=== PATIENT | female | born 1995 ===

== ENCOUNTER 2018-07-30 10:58 | Inpatient (IN) | payer MEDICAID, SELFPAY ==
[2018-07-30 12:02] VITALS: BMI 31.1
[2018-07-30] MEDS ORDERED: Lactated Ringer's 1,000 ML IV ONE (12:02)
[2018-07-30] MEDS ORDERED: Oxytocin 30 UNIT 30 UNITS/500 ML BAG IV ONE (12:03)
[2018-07-30] MEDS ORDERED: Lactated Ringer's 1,000 ML IV SCH (12:15)
[2018-07-30] MEDS ORDERED: OXYTOCIN/0.9 % NS 20 UNIT/1,000 ML BAG IV SCH (12:15)
[2018-07-30 12:45] LABS: BASO % 0.2 % (0.0-2.0); EOS # 0.1 K/uL (0.0-0.7); EOS % 0.6 % (0.0-4.0); HEMOGLOBIN 13.3 g/dL (12.0-16.0); LYMPH # 2.5 K/uL (1.0-4.3); MEAN CELL VOLUME 82.6 fl (81.0-99.0); MEAN CORPUSCULAR HEMOGLOBIN 27.9 pg (27.0-31.0); MEAN CORPUSCULAR HGB CONC 33.8 g/dL (33.0-37.0); MEAN PLATELET VOLUME 10.4 fl (7.2-11.7); MONO # 0.8 K/uL (0.0-0.8); MONO % 5.7 % (0.0-10.0); NEUT # 9.9 K/uL (1.8-7.0); NEUT % 74.5 % (50.0-75.0); NRBC % 0.1 % (0.0-0.0); RBC 4.78 Mil/uL (3.80-5.20); RED CELL DISTRIBUTION WIDTH 14.9 % (11.5-14.5); WHITE BLOOD COUNT 13.3 K/uL (4.8-10.8)
[2018-07-30] MEDS ORDERED: Benzocaine/Menthol SPRAY TOP PRN ×2 (14:16→15:59)
[2018-07-30] MEDS ORDERED: Oxycodone/Acetaminophen 5/325 mg Tab PO PRN ×4 (14:16→15:59)
[2018-07-31 07:01] LABS: BASO % 0.3 % (0.0-2.0); EOS # 0.2 K/uL (0.0-0.7); EOS % 1.8 % (0.0-4.0); HEMOGLOBIN 10.9 g/dL (12.0-16.0); LYMPH # 2.9 K/uL (1.0-4.3); LYMPH % 25.6 % (20.0-40.0); MEAN CELL VOLUME 84.2 fl (81.0-99.0); MEAN CORPUSCULAR HEMOGLOBIN 27.7 pg (27.0-31.0); MEAN CORPUSCULAR HGB CONC 32.9 g/dL (33.0-37.0); MEAN PLATELET VOLUME 10.2 fl (7.2-11.7); MONO # 0.8 K/uL (0.0-0.8); NEUT # 7.4 K/uL (1.8-7.0); NEUT % 65.3 % (50.0-75.0); RBC 3.93 Mil/uL (3.80-5.20); RED CELL DISTRIBUTION WIDTH 14.8 % (11.5-14.5); WHITE BLOOD COUNT 11.3 K/uL (4.8-10.8)
--- NOTE | 2018-07-31 13:17 | OBDS ---
DELIVERY PERSONNEL Delivery Doctor: Francisco Sanchez MD Administrative Analyst: Bridget Okeefe RN MATERNAL INFORMATION Delivery Anesthesia: Local Medications in Delivery: IV NS 0.9% 500ml with pitocin 30units. Estimated Blood Loss (ml): 200 Placenta Cultured: No Maternal Complications: None Provider Comments: Normal spontaneous vaginal delivery. Patient delivered viable with Apgars of 9 and 9 at 1 and 5 minutes respectively. de livered via DON position. Loose nuchal cord x1 reduced. Placenta delivered spontaneously. Lacerati on repaired, as above. Uterus firm and appropriately hemostatic following delivery. Patient tolerat ed repair and delivery well. No complications. Estimated blood loss 200 cc. LABOR SUMMARY EDC: 08/07/2018 00:00 No. Babies in Womb: 1 Attempted: No Labor Anesthesia: None LABOR INFORMATION Reason for Induction: Not Applicable Onset of Labor: 07/29/2018 04:00 Complete Dilatation: 07/29/2018 12:40 Oxytocin: N/A Group B Beta Strep: Negative Antibiotics # of Doses: n/a Antibiotics Time of Last Dose: n/a Steroids Given: None Reason Steroids Not Administered: Not Applicable MEMBRANES Membranes Rupture Method: Artificial Rupture of Membranes: 07/30/2018 12:40 Length of Rupture (hrs): 0.33 Amniotic Fluid Color: Clear Amniotic Fluid Amount: Small Amniotic Fluid Odor: Normal STAGES OF LABOR Stage 1 hrs: 8 Stage 1 min: 40 Stage 2 hrs: 24 Stage 2 min: 20 Stage 3 hrs: 0 Stage 3 min: 4 Total Time in Labor hrs: 33 Total Time in Labor min: 4 VAGINAL DELIVERY Laceration Extension: Second Degree Laceration Type: Perineal Laceration Repair: Yes Laceration Repair Note: Second-degree midline perineal laceration. Area infiltrated with 1% lidocai ne. Laceration repaired with 2.0 repeated without complication. Patient tolerated repair well. Initial Vag Sponge Count: 10 sponges, 5 laps with ring Final Vag Sponge Count: 10 sponges, 5 laps with ring Initial Vag Sharps Count: 1 suture, 1 needle Final Vag Sharps Count: 1 suture, 1 needle Sponge Count Correct: Yes Sharps Count Correct: Yes Count Comment: count correct and acknowleged by Dr. Sanchez BABY A INFORMATION Infant Delivery Date/Time: 07/30/2018 13:00 Method of Delivery: Vaginal Born in Route : No : N/A Forceps: N/A Vacuum Extraction: N/A Shoulder Dystocia : No SHOULDER DYSTOCIA BABY A Delivery Date/Time: 07/30/2018 13:00 PRESENTATION/POSITION BABY A Presentation: Cephalic Cephalic Presentation: Vertex Breech Presentation: N/A PLACENTA INFORMATION BABY A Placenta Delivery Time : 07/30/2018 13:04 Placenta Method of Delivery: Spontaneous Placenta Status: Delivered SCORES BABY A Heart Rate 1 min: >100 bpm Resp Effort 1 min: Good Cry Reflex Irritability 1 min: Cough or Sneeze or Pulls Away Muscle Tone 1 min: Active Motion Color 1 min: Body Lyons, Extremities Blue Resuscitation Effort 1 min: Tactile Stimulation SCORE 1 MIN: 9 Heart Rate 5 min: >100 bpm Resp Effort 5 min: Good Cry Reflex Irritability 5 min: Cough or Sneeze or Pulls Away Muscle Tone 5 min: Active Motion Color 5 min: Body Ly[place], Extremities Blue Resuscitation Effort 5 min: N/A SCORE 5 MIN: 9 INFORMATION BABY A Gestational Age at Delivery: 38.6 Gestational Status: Term Infant Outcome : Liveborn Condition : Stable Infant Sex: Male IDENTIFICATION/MEDS BABY A ID Band Number: [id number] ID Band Location: Left Leg; Left Arm Vitamin K Given : Not Given Erythromycin Given: Not Given WEIGHT/LENGTH BABY A Birthweight (gms): 3355 Weight (lb): 7 Weight (oz): 6 CORD INFORMATION BABY A No. Cord Vessels: 3 Nuchal Cord : N/A Infant Suction: None ASSESSMENT BABY A Infant Complications: None Physical Findings at Delivery: Within Normal Limits Infant Respirations: Appears Normal Greens Picker/ALS Called : No Care By: Dr. Ingram Transferred To: Remains with Mother
--- NOTE | 2018-07-31 13:18 | OBDS ---
DELIVERY PERSONNEL Delivery Doctor: Francisco Sanchez MD Virtual Customer Assistant: Bridget Okeefe RN MATERNAL INFORMATION Delivery Anesthesia: Local Medications in Delivery: IV NS 0.9% 500ml with pitocin 30units. Estimated Blood Loss (ml): 200 Placenta Cultured: No Maternal Complications: None Provider Comments: Normal spontaneous vaginal delivery. Patient delivered viable infant with Apgars of 9 and 9 at 1 and 5 minutes respectively. de livered via DON position. Loose nuchal cord x1 reduced. Placenta delivered spontaneously. Lacerati on repaired, as above. Uterus firm and appropriately hemostatic following delivery. Patient tolerat ed repair and delivery well. No complications. Estimated blood loss 200 cc. LABOR SUMMARY EDC: 08/07/2018 00:00 No. Babies in Womb: 1 Attempted: No Labor Anesthesia: None LABOR INFORMATION Reason for Induction: Not Applicable Onset of Labor: 07/29/2018 04:00 Complete Dilatation: 07/29/2018 12:40 Oxytocin: N/A Group B Beta Strep: Negative Antibiotics # of Doses: n/a Antibiotics Time of Last Dose: n/a Steroids Given: None Reason Steroids Not Administered: Not Applicable MEMBRANES Membranes Rupture Method: Artificial Rupture of Membranes: 07/30/2018 12:40 Rupture of Membranes: 07/30/2018 12:40 Length of Rupture (hrs): 0.33 Length of Rupture (hrs): 0.33 Amniotic Fluid Color: Clear Amniotic Fluid Amount: Small Amniotic Fluid Odor: Normal STAGES OF LABOR Stage 1 hrs: 8 Stage 1 min: 40 Stage 2 hrs: 24 Stage 2 min: 20 Stage 3 hrs: 0 Stage 3 min: 4 Total Time in Labor hrs: 33 Total Time in Labor min: 4 VAGINAL DELIVERY Laceration Extension: Second Degree Laceration Type: Perineal Laceration Repair: Yes Laceration Repair Note: Second-degree midline perineal laceration. Area infiltrated with 1% lidocai ne. Laceration repaired with 2.0 repeated without complication. Patient tolerated repair well. Initial Vag Sponge Count: 10 sponges, 5 laps with ring Final Vag Sponge Count: 10 sponges, 5 laps with ring Initial Vag Sharps Count: 1 suture, 1 needle Final Vag Sharps Count: 1 suture, 1 needle Sponge Count Correct: Yes Sharps Count Correct: Yes Count Comment: count correct and acknowleged by Dr. Sanchez BABY A INFORMATION Infant Delivery Date/Time: 07/30/2018 13:00 Method of Delivery: Vaginal Born in Route : No : N/A Forceps: N/A Vacuum Extraction: N/A Shoulder Dystocia : No SHOULDER DYSTOCIA BABY A Infant Delivery Date/Time: 07/30/2018 13:00 PRESENTATION/POSITION BABY A Presentation: Cephalic Cephalic Presentation: Vertex Breech Presentation: N/A PLACENTA INFORMATION BABY A Placenta Delivery Time : 07/30/2018 13:04 Placenta Method of Delivery: Spontaneous Placenta Status: Delivered SCORES BABY A Heart Rate 1 min: >100 bpm Resp Effort 1 min: Good Cry Reflex Irritability 1 min: Cough or Sneeze or Pulls Away Muscle Tone 1 min: Active Motion Color 1 min: Body Startex, Extremities Blue Resuscitation Effort 1 min: Tactile Stimulation SCORE 1 MIN: 9 Heart Rate 5 min: >100 bpm Resp Effort 5 min: Good Cry Reflex Irritability 5 min: Cough or Sneeze or Pulls Away Muscle Tone 5 min: Active Motion Color 5 min: Body Startex, Extremities Blue Resuscitation Effort 5 min: N/A SCORE 5 MIN: 9 INFANT INFORMATION BABY A Gestational Age at Delivery: 38.6 Gestational Status: Term Outcome : Liveborn Condition : Stable Infant Sex: Male IDENTIFICATION/MEDS BABY A ID Band Number: [id number] ID Band Location: Left Leg; Left Arm Vitamin K Given : Not Given Erythromycin Given: Not Given WEIGHT/LENGTH BABY A Infant Birthweight (gms): 3355 Weight (lb): 7 Infant Weight (oz): 6 CORD INFORMATION BABY A No. Cord Vessels: 3 Nuchal Cord : N/A Infant Suction: None ASSESSMENT BABY A Infant Complications: None Physical Findings at Delivery: Within Normal Limits Infant Respirations: Appears Normal Chemical Sprayer/ALS Called : No Care By: Dr. Ingram Transferred To: Remains with Mother
--- NOTE | 2018-08-01 07:31 | OBPPN ---
Datetime: 08/01/2018 06:45 PP Pain Prov: Within normal limits PP Nausea Prov: Denies PP Flatus Prov: Yes PP BM Prov: Yes PP Breasts Prov: Normal PP Heart Prov: Normal PP Lungs Prov: Normal PP Abdomen/Uterus Prov: Normal PP Lochia Prov: Not Done PP Vulva/Perineum Prov: Not Done PP CVA Tenderness Prov: Normal PP Extremities Prov: Normal PP C/S Incision Prov: Not Applicable PP Progress Prov: Normal PP Impression Prov: Normal progression PP Plan Prov: Continue present management PP Progress Note Prov: S: 23 yo s/p on 07/30/18, PPD2. Pt was seen and examined at bed side this AM. No overnight events. Pain is minimal. Ambulating and tolerating PO diet without difficu lty. Exclusively . Lochia < menses. +Flatus/+ BM. Denies dizziness, orthostatic changes , change in vision, palpitations, chest pain, fever, chills, diarrhea, nausea and vomiting. O: VS: Stable overnight GEN: NAD Cardio: S1S2, no murmurs Lungs: clear breath sounds b/l, no wheezing Abdomen: BS+, appropriate tenderness to palpation. Uterus is firm and at the level of the umbilic us. EXT: No edema, calves non-tender NEURO/PSYCH: AAOx3, no grossly focal deficits, preserved affect and mood. H/H: aCBC: 13.3/39.5 pCBC: 10.9/33.1 Assessment/Plan: 23 yo s/p on 07/30/18, PPD2. Pt remains afebrile, tolerating pain. -Regular diet -Anticipating d/c on 08/01 -Continue with current management -Encourage and ambulating -Ibuprofen 600mg q6 for pain Leila Diamond PGY1 OB Hospitalist Addendum: Pt seen and examined by me. Agree w/ above. PPD 2 s/p , doing well, breast feeding. Discharge home today. (ES) IP PP Procedures: None Vital Signs Provider PP: Reviewed; Within Normal Limits
[2018-08-01 18:43] VITALS: BP 123/76; PULSE 75; RESP 20; TEMP 98.8; O2SAT 98
== END 2018-08-01 13:10 | disposition home or self-care (01) | DRG 560 ==
LOC: H.EROB2 10:58 → H.L&D 11:12 → H.EROB2 12:01 → H.L&D 12:02 → H.OB/GYN 16:11
PROVIDERS: ADMIT Obstetrics & Gynecology; ATTEND Obstetrics & Gynecology
PROC: 10E0XZZ Delivery of Products of Conception, External Approach (ICD-10-PCS; principal; 2018-07-30)
PROC: 0KQM0ZZ Repair Perineum Muscle, Open Approach (ICD-10-PCS; 2018-07-30)
PROC: 4A1HXCZ Monitoring of Products of Conception, Cardiac Rate, External Approach (ICD-10-PCS; 2018-07-30)
DX: O69.81X0 Labor and delivery complicated by cord around neck, without compression, not applicable or unspecified (principal); O70.1 Second degree perineal laceration during delivery; Z37.0 Single live birth; Z3A.38 38 weeks gestation of pregnancy

== ENCOUNTER 2018-08-27 10:48 | Emergency (ER) | payer MEDICAID, SELFPAY ==
[2018-08-27 10:59] VITALS: BMI 29.2
--- NOTE | 2018-08-27 12:25 | ED PDOC ---
History of Present Illness History of Present Illness: 23 y/o female with no significant PMHx presents to the ED for evaluation of flu- like symptoms, onset one day ago. Patient reports of developing body aches and sore throat since yesterday. Patient notes of taking Tylenol with no relief. Otherwise, patient denies cough and fever. Of note, patient's two children are sick with similar symptoms. PMD: Non H Provider HPI: Influenza Time Seen by Provider: 08/27/18 11:25 Chief Complaint: Flu-like Symptoms Chief Complaint (Provider): Flu-like Symptoms History Per: Patient Exam Limitations: no limitations Onset/Duration Of Symptoms: Days Symptoms include: bodyaches, sore throat Sick Contacts (Context): Family Member(s) Past Medical History Reviewed: Historical Data, Nursing Documentation, Vital Signs Vital Signs: Last Vital Signs Temp 98.2 F 08/27/18 10:59 Pulse 84 08/27/18 10:59 Resp 20 08/27/18 10:59 BP 121/78 08/27/18 10:59 Pulse Ox 97 08/27/18 10:59 - Medical History PMH: No Chronic Diseases - Surgical History Surgical History: No Surg Hx - Family History Family History: States: Unknown Family Hx - Living Arrangements Living Arrangements: With Family - Social History Current smoker - smoking cessation education provided: No Alcohol: None Drugs: Denies - Home Medications Home Medications: Ambulatory Orders Medication Instructions Recorded Multivit/Folic Acid/I 1 tab PO DAILY 07/30/18 [] - Allergies Allergies/Adverse Reactions: Allergies Allergy/AdvReac Type Severity Reaction Status Date / Time No Known Allergies Allergy Verified 07/30/18 12:02 Review of Systems ROS Statement: Except As Marked, All Systems Reviewed And Found Negative Constitutional: Positive for: Other (myalgia). Negative for: Fever ENT: Positive for: Throat Pain Respiratory: Negative for: Cough Physical Exam - Reviewed Nursing Documentation Reviewed: Yes Vital Signs Reviewed: Yes - Physical Exam Appears: Positive for: No Acute Distress Head Exam: Positive for: ATRAUMATIC, NORMOCEPHALIC Skin: Positive for: Normal Color, Warm, Dry Eye Exam: Positive for: Normal appearance, EOMI, PERRL ENT: Positive for: Normal ENT Inspection Neck: Positive for: Normal, Painless ROM, Supple Cardiovascular/Chest: Positive for: Regular Rate, Rhythm. Negative for: Murmur Respiratory: Positive for: Normal Breath Sounds. Negative for: Respiratory Distress Extremity: Positive for: Normal ROM Neurological/Psych: Positive for: Awake, Alert, Oriented. Negative for: Motor/Sensory Deficits Medical Decision Making Medical Decision Making: Time: 1156 Impression: URI and sore throat Differentials include but not limited to Influenza and strep pharyngitis Plan: -- Influenza A B -- Rapid Strep Group A Antigen Scribe Attestation: Documented by Tod Fong, acting as a scribe Jessica Oneill MD. Provider Scribe Attestation: All medical record entries made by the Scribe were at my direction and personally dictated by me. I have reviewed the chart and agree that the record accurately reflects my personal performance of the history, physical exam, medical decision making, and the department course for this patient. I have also personally directed, reviewed, and agree with the discharge instructions and disposition. - ECG O2 Sat by Pulse Oximetry: 97 - Progress Re-evaluation Time: 13:00 Condition: Re-examined, Improved Disposition - Clinical Impression Clinical Impression: URI, acute - Patient ED Disposition Is Patient to be Admitted: No Doctor Will See Patient In The: Office Counseled Patient/Family Regarding: Studies Performed, Diagnosis, Need For Followup - Disposition Disposition: Routine/Home Disposition Time: 13:00 Condition: GOOD Additional Instructions: RACHANA GUERRA, thank you for letting us take care of you today. Your provider was Michael Oneill MD and you were treated for FLU-LIKE SYMPTOMS. The emergency medical care you received today was directed at your acute symptoms. If you were prescribed any medication, please fill it and take as directed. It may take several days for your symptoms to resolve. Return to the Emergency Department if your symptoms worsen, do not improve, or if you have any other problems. Please contact your doctor or call one of the physicians/clinics you have been referred to that are listed on the Patient Visit Information form that is included in your discharge packet. Bring any paperwork you were given at discharge with you along with any medications you are taking to your follow up visit. Our treatment cannot replace ongoing medical care by a primary care provider outside of the emergency department. Thank you for allowing the [facility] team to be part of your care today. If you had an X-Ray or CT scan: A Radiologist will review the ED reading if any change in treatment is needed we will contact you. If you had a blood, urine, or wound culture: It will take several days for the results, if any change in treatment is needed we will contact you. If you had an STI test: It will take 48 hours for the results. Please call after 1 week if you have not heard back. Instructions: Viral Upper Respiratory Infection, Adult (DC) Print Language: [place]
[2018-08-27 13:54] VITALS: BP 110/76; PULSE 85; RESP 19; TEMP 97.7; O2SAT 98
== END 2018-08-27 13:55 | disposition home or self-care (01) ==
LOC: H.ER 10:48
DX: J06.9 Acute upper respiratory infection, unspecified (principal)